=== PATIENT | male | born 1965 | race Caucasian/White ===

== ENCOUNTER 2020-08-02 15:03 | Emergency (ER) | payer BC ==
[2020-08-02 15:10] VITALS: BP 133/82
--- NOTE | 2020-08-02 17:14 | ED Physician Documentation ---
History of Present Illness - Stated complaint Stated Complaint: DIZZY,NAUSEA - Chief complaint Chief Complaint: General - Additonal information Additional information: 54-year-old Male comes to the emergency department for evaluation of 4 episodes of vertigo. Patient reports that at 3 AM he woke up and turned his head and then noticed that he felt like the room was spinning. The sensation lasted about 45 seconds before it went away and he went to sleep. Throughout the day today though he has noticed that when he turns his head or bends over he feels dizzy. He became worried when he was dizzy and looked in the mirror and saw that his eyes were shaking. No recent cough cold congestion. No tinnitus. No diplopia. No slurred speech focal weakness in the arms or legs. He does not have a history of hypertension or diabetes. Review of Systems Constitutional: reports: Reviewed and negative Eyes: denies: Loss of vision, Decreased vision, Photophobia Ears: denies: Loss of hearing, Ear pain, Drainage/discharge Nose: reports: Reviewed and negative Throat: reports: Dental pain / toothache Cardiac: reports: Reviewed and negative Respiratory: denies: Dyspnea, Cough GI: reports: Nausea. denies: Vomiting, Constipation, Diarrhea, Hematemesis : reports: Reviewed and negative Skin: reports: Reviewed and negative Musculoskeletal: reports: Reviewed and negative Neurologic: reports: Other (vertigo). denies: Generalized weakness, Focal weakness, Difficulty speaking, Near syncope, Syncope, Seizure, Headache, Head i njury PD PAST MEDICAL HISTORY - Present Medications Home Medications: Ambulatory Orders Medication Instructions Recorded Confirmed Meclizine [Antivert] 12.5 mg PO Q6H #30 tablet 08/02/20 - Allergies Allergies/Adverse Reactions: Allergies Allergy/AdvReac Type Severity Reaction Status Date / Time No Known Drug Allergies Allergy Verified 08/02/20 15:07 PD ED PE NORMAL - General General: Alert and oriented X 3, No acute distress, Well developed/nourished - HEENT HEENT: Atraumatic, PERRL (Nystagmus with right head turn. Not horizontal), Ears normal (And impaction in left ear canal easily removed with curette. Visible TM unremarkable.), Moist mucous membranes, Pharynx benign, Dentition benign - Neck Neck: Supple, no meningeal sign, No adenopathy, Thyroid normal, No JVD - Cardiac Cardiac: RRR, No murmur - Respiratory Respiratory: No respiratory distress - Abdomen Abdomen: Normal bowel sounds, Soft, Non tender, Non distended - Back Back: No CVA TTP - Derm Derm: Normal color, Warm and dry - Neuro Neuro: Alert and oriented X 3, associate director regulatory affairs 2-12 intact, No motor deficit, No sensory deficit, Normal speech, Other (normal cerebellar exam. Nystagmus induced with head turn to right. Positive Whittier-Hallpike at bedside.) Eye Opening: Spontaneous Motor: Obeys Commands Verbal: Oriented GCS Score: 15 Results - Vitals Vitals: Vital Signs - 24 hr 08/02/20 15:07 Temperature 36.5 C Heart Rate 65 Respiratory 16 Rate Blood Pressure 133/82 H O2 Saturation 98 Oxygen O2 Source Room air PD MEDICAL DECISION MAKING - ED course Complexity details: considered differential, d/w patient, d/w family ED course: This is a 54-year-old male that presents the emergency department with 4 episodes of vertigo this afternoon. The vertigo lasts typically 2 minutes and he does have some associated right sided nystagmus. He did have a positive Whittier- Hallpike in the emergency department and we did perform the Hung maneuver. Following the Hung his symptoms had nearly fully abated. His exam and history is consistent with a peripheral vertigo and patient was discharged home with a prescription for meclizine and home repositioning exercises. Departure - Departure Disposition: 01 Home, Self Care Clinical Impression: Benign paroxysmal positional vertigo of right ear Condition: Stable Record reviewed to determine appropriate education?: Yes Instructions: Vertigo Paroxysmal Positional Prescriptions: Meclizine [Antivert] 12.5 mg PO Q6H #30 tablet Comments: I hope that you are feeling better soon. Reassuringly your dizziness is coming from your inner ear and not your brain. Please perform the home repositioning techniques as discussed. And also schedule close follow-up with your primary care doctor. If at any point your dizziness does not improve with the repositioning techniques, you are not walking normally, you have slurred speech then please return immediately to the ER
== END 2020-08-02 17:51 | disposition home or self-care (01) ==
LOC: ED 15:03
DX: H81.11 Benign paroxysmal vertigo, right ear (principal); H55.00 Unspecified nystagmus
CPT/HCPCS: 99282; 99283